=== PATIENT | male | born 1940 | race Caucasian/White ===

== ENCOUNTER → 2016-08-29 | Outpatient (CLI) | payer OTHER ==
[~2016-08-29] VITALS: Ht 177.8 cm; Wt 81.6 kg
[~2016-08-29] MED LIST: ACCUPRIL40 MG PO; ALPRAZOLAM2 MG PO; ATORVASTATIN CA40 MG PO; GRAPE SEED50 MG PO; HAIR, SKIN & N1 EAC1 PO; LEVOTHYROXIN0.175 MG PO; MELATONIN1 MG PO; VITAMIN D1000 UNI1 PO
== END | disposition home or self-care (01) ==
LOC: GI 08:40
DX: Z09 Encounter for follow-up examination after completed treatment for conditions other than malignant neoplasm (principal); K59.8 Other specified functional intestinal disorders; I10 Essential (primary) hypertension; E78.00 Pure hypercholesterolemia, unspecified; E78.5 Hyperlipidemia, unspecified; Z95.5 Presence of coronary angioplasty implant and graft; Z87.891 Personal history of nicotine dependence; Z98.890 Other specified postprocedural states; Z79.899 Other long term (current) drug therapy
CPT/HCPCS: 62110; 62900